=== PATIENT | female | born 1965 | race Caucasian/White ===

== ENCOUNTER 2020-04-14 07:15 | Outpatient (RCR) | payer BC, SELFPAY ==
[2020-01-21 13:43] VITALS: BMI 44.4
== END 2020-04-20 23:59 | disposition home or self-care (01) ==
LOC: ANHWOC 07:15
PROVIDERS: PCP Family Medicine; Visit Provider Family Medicine
DX: L03.116 Cellulitis of left lower limb (principal)
CPT/HCPCS: 29581; 99211; 99212; A9270; G0463

== ENCOUNTER 2023-02-14 10:36 | Outpatient (CLI) | payer BC, SELFPAY ==
--- NOTE | ~2023-02-14 | MM_ITS ---
EXAMINATION: MM screening gaby BI w arianna HISTORY: Screening mammogram TECHNIQUE: Craniocaudal and mediolateral oblique 3-D tomosynthesis images were obtained and synthetic 2-D images were generated. CAD analysis was submitted and interpreted. COMPARISON: 03/14/2016, 06/17/2013 BREAST PARENCHYMAL COMPOSITION: The breasts are heterogeneously dense, which may obscure small masses . FINDINGS: No suspicious mass, calcification, or architectural distortion are identified in either [place] ast to suggest malignancy. There has been no suspicious interval change. IMPRESSION: 1. No mammographic evidence of malignancy. 2. Recommend routine screening mammography in one year. BI-RADS Category 1: Negative Reviewed, dictated and finalized at location A. [facility] [employer]
== END 2023-02-14 10:37 | disposition home or self-care (01) ==
LOC: CHSIMG 10:38
PROVIDERS: PCP Family Medicine; Visit Provider Family Medicine
DX: Z12.31 Encounter for screening mammogram for malignant neoplasm of breast (principal)
CPT/HCPCS: 77063; 77067